=== PATIENT | male | born 1985 | race Hispanic/Latino ===

== ENCOUNTER → 2022-05-27 | Day surgery (SDC) | payer OTHER ==
[~2022-05-27] MED LIST: CYCLOBENZAPRINE10 MG PO; EPHEDRINE SULFATE INJ 50 MG/ML VIAL ONE; LACTATED RINGER'S 1,000 ML ONE; LIDOCAINE HCL 2% LOCAL INJ 5 ML SDV VIAL INJ ONE; METHOCARBAMOL750 MG PO; MIDAZOLAM HCL 2 MG/2 ML VIAL ONE; MULTI-VITAMIN1 EACH PO; POVIDONE IODINE 0.05% 0.05 % ML PO ONE; PROPOFOL IV EMULSION 10 MG/ML 20 ML VIAL ONE; SUMATRIPTAN SUC25 MG PO; [UNRECOGNIZED DRUG - OTHER] PO
[2022-05-27 18:20] VITALS: BP 148/73
== END | disposition home or self-care (01) ==
LOC: OR 13:38
PROVIDERS: ATTEND Internal Medicine Gastroenterology
DX: K21.9 Gastro-esophageal reflux disease without esophagitis (principal); K29.60 Other gastritis without bleeding; K29.50 Unspecified chronic gastritis without bleeding; K44.9 Diaphragmatic hernia without obstruction or gangrene; K62.5 Hemorrhage of anus and rectum; K59.00 Constipation, unspecified; K64.8 Other hemorrhoids; R03.0 Elevated blood-pressure reading, without diagnosis of hypertension; Z88.6 Allergy status to analgesic agent; Z79.1 Long term (current) use of non-steroidal anti-inflammatories (NSAID); Z79.899 Other long term (current) drug therapy; Z68.37 Body mass index [BMI] 37.0-37.9, adult; Z87.898 Personal history of other specified conditions
CPT/HCPCS: 43239; 45378; 88305; 88342; J2001; J2250; J2704; J7121